=== PATIENT | female | born 1960 | race Caucasian/White ===

== ENCOUNTER → 2016-12-11 | Outpatient (CLI) | payer OTHER ==
--- NOTE | 2016-12-11 16:26 | RAD ---
DATE: 12/11/16 EXAM: DIGITAL SCREEN BILAT W/CAD HISTORY: Routine screening COMPARISON: 12/11/15 This study was interpreted with the benefit of Computerized Aided Detection (CAD). TECHNIQUE: Routine digital CC and MLO views of both breasts are obtained. FINDINGS: Breast Density: HETERO The breast parenchyma is heterogeneiously dense, which could reduce sensitivity of mammography. Breast parenchyma level C.. No suspicious clustered microcalcifications or architectural distortion seen. Stable nodules are seen in both breasts. The skin and nipples are intact. IMPRESSION: Benign findings BI-RADS CATEGORY: 2 BENIGN FINDING(S) RECOMMENDED FOLLOW-UP: 12M 12 MONTH FOLLOW-UP PQRS compliance statement: Patient information was entered into a reminder system with a target due date for the next mammogram. Mammography is a sensitive method for finding small breast cancers, but it does not detect them all and is not a substitute for careful clinical examination. A negative mammogram does not negate a clinically suspicious finding and should not result in delay in biopsying a clinically suspicious abnormality. "Our facility is accredited by the [employer] Mammography Program."
== END | disposition home or self-care (01) ==
LOC: MAMMO 15:21
PROVIDERS: ATTEND Internal Medicine
DX: Z12.31 Encounter for screening mammogram for malignant neoplasm of breast (principal)
CPT/HCPCS: G0202; 77067

== ENCOUNTER → 2017-12-18 | Outpatient (CLI) | payer OTHER ==
--- NOTE | 2017-12-18 14:35 | RAD ---
DATE: 12/18/2017 EXAM: DIGITAL SCREEN BILAT W/CAD HISTORY: Previous right breast cancer COMPARISON: 12/18/2017 This study was interpreted with the benefit of Computerized Aided Detection (CAD). Breast Density: HETERO The breast parenchyma is heterogenously dense, which could reduce sensitivity of mammography. Breast parenchyma level C. FINDINGS: No new or enlarging breast densities are seen. There is an unchanged small smooth nodule in the anterolateral aspect of the left breast. No suspicious microcalcifications have developed. IMPRESSION: Stable mammograms without evidence of malignancy. Stable mammograms without evidence of malignancy. BI-RADS CATEGORY: 2 BENIGN FINDING(S) RECOMMENDED FOLLOW-UP: 12M 12 MONTH FOLLOW-UP PQRS compliance statement: Patient information was entered into a reminder system with a target due date for the next mammogram. Mammography is a sensitive method for finding small breast cancers, but it does not detect them all and is not a substitute for careful clinical examination. A negative mammogram does not negate a clinically suspicious finding and should not result in delay in biopsying a clinically suspicious abnormality. "Our facility is accredited by the [employer] Mammography Program."
== END | disposition home or self-care (01) ==
LOC: MAMMO 13:45
PROVIDERS: ATTEND Internal Medicine
DX: Z12.31 Encounter for screening mammogram for malignant neoplasm of breast (principal); Z85.3 Personal history of malignant neoplasm of breast
CPT/HCPCS: 77067

== ENCOUNTER → 2018-06-08 | Outpatient (CLI) | payer OTHER ==
[~2018-06-08] MED LIST: CHOL10003 PO; GABA600T7 PO; HYDR-2765 PO; LACT1CAP6 PO; LANS30CA PO; LEVO88TA4 PO; LISI10TA2 PO; LYSI500T PO; MILK140C PO; OMEG1CAP38 PO; SIMV20TA3 PO; TURM538C PO; VENL75TA PO; VITA100C8 PO; VITA1TAB19 PO
[2018-06-08 16:04] LABS: BASO # 0.1 x10^3/uL (0.0-0.2); BASO % 1 % (0-3); EOS # 0.3 x10^3/uL (0.0-0.7); EOS % 2 % (0-3); HEMATOCRIT 43.3 % (36.0-47.0); HEMOGLOBIN 14.6 g/dL (12.0-15.5); LYMPH % 26 % (24-48); MEAN CORPUSCULAR HEMOGLOBIN 32 pg (25-35); MEAN CORPUSCULAR HGB CONC 34 g/dL (31-37); MEAN CORPUSCULAR VOLUME 96 fL (79-100); MONO # 0.9 x10^3/uL (0.0-1.1); MONO % 8 % (0-9); NEUT # 7.4 x10^3uL (1.8-7.7); NEUT % 63 % (31-73); PLATELET COUNT 278 x10^3/uL (140-400); RED BLOOD COUNT 4.52 x10^6/uL (3.50-5.40); RED CELL DISTRIBUTION WIDTH 12.2 % (11.5-14.5); WHITE BLOOD COUNT 11.7 x10^3/uL (4.0-11.0)
--- NOTE | 2018-06-08 16:14 | EKG ---
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
[2018-06-08 16:19] LABS: ALBUMIN 4.3 g/dL (3.4-5.0); ALBUMIN/GLOBULIN RATIO 1.1 (1.0-1.7); CALCIUM 9.5 mg/dL (8.5-10.1); CREATININE 0.7 mg/dL (0.6-1.0); GFR 85.6; TOTAL BILIRUBIN 0.3 mg/dL (0.2-1.0); TOTAL PROTEIN 8.1 g/dL (6.4-8.2)
== END | disposition home or self-care (01) ==
LOC: SURGPAT 13:24
PROVIDERS: ATTEND Neurological Surgery
DX: Z01.818 Encounter for other preprocedural examination (principal); M54.12 Radiculopathy, cervical region; M48.02 Spinal stenosis, cervical region
CPT/HCPCS: 36415; 80053; 85025; 87641; 93005

== ENCOUNTER 2018-06-18 06:49 | Observation (INO) | payer OTHER ==
--- NOTE | 2018-06-17 15:06 | HP ---
ADMIT DATE: 06/18/2018 HISTORY OF PRESENT ILLNESS: The patient is a pleasant 58-year-old who is having some difficulty with neck pain and left greater than right arm pain. She notes numbness and tingling sensation in her right arm and she has no difficulties of unsteadiness. The problem started in 09/2016. The problem began spontaneously. She says the tingling in her arm is constant. At night, she has more pain than during the day. She uses ice and massage to help her. She takes Advil. She was doing chiropractic treatment and says this is no longer helping her. She has had 2 epidural steroid injections, which have not given her long-term relief. PAST MEDICAL HISTORY: Arthritis, cold sores, thyroid disease, tonsillitis, hypertension, headaches and migraines. PAST SURGICAL HISTORY: Tonsillectomy in 1976 and breast surgery in 2009. FAMILY HISTORY: Cancer. 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 . Rarely exercises. Smokes lightly. Drinks 4 alcoholic beverages per day. Drinks coffee daily. ALLERGIES: AMPICILLIN. CURRENT MEDICATIONS: Levothyroxine, venlafaxine,vitamin B12, lysine, milk thistle, vitamin E, fiber, lisinopril, simvastatin, gabapentin, Advil. REVIEW OF SYSTEMS: A 12-point review of systems was obtained and is noncontributory except for that mentioned above. PHYSICAL EXAMINATION: NEUROSURGERY EXAMINATION: GENERAL APPEARANCE: Alert, pleasant, no acute distress. HEAD: Normocephalic and atraumatic. NECK AND THYROID: Fnie-ae-hfxiudib tenderness with palpation of posterior cervical region. SKIN: Warm and dry. MUSCULOSKELETAL: Cervical paraspinal muscle bulk is normal, cervical range of motion is restricted, normal range of motion of the upper extremities bilaterally. EXTREMITIES: No clubbing, cyanosis or edema. NEUROLOGIC: Alert and oriented x 3, normal recent and remote memory, strength 5/5 in bilateral upper and lower extremities, sensory was intact to light touch in the upper and lower extremities, reflexes were 3+ and symmetric in the upper and lower extremities bilaterally, there are no pathologic reflexes, normal gait. IMAGING: I reviewed a cervical MRI scan from 05/13/2018. On that study, there is reversal of normal cervical lordosis centered at C3-C4. At C3-C4, there is relatively severe bilateral foraminal stenosis. There is also stenosis with the canal measuring about 7 mm. At C4-C5, there is moderately severe left foraminal narrowing. She also has left-sided foraminal narrowing at C6-C7. ASSESSMENT/ PLAN: C3-C4, C4-C5 and C6-C7, all could be contributing to her neck and bilateral shoulder and arm pain, worse in the left. At this point, I think it is prudent to operate C3-C4 and C4-C5, which would include an anterior cervical diskectomy and fusion. It maybe in the future that she will require further surgery at C6-C7. I did discuss all this with her. I outlined the cervical surgery and the risks involved as well as the expected postoperative course. She understands. At this point, she would like to go ahead. We will make the arrangements. ALDA VALENTIN MD DR: CORTNEY/mazin JOB#: [id number] / [id number] DUY
[2018-06-18] VITALS (9 sets, daily range): BP systolic 102–116; BP diastolic 73–83
[~2018-06-18 06:49] MED LIST changes: +BACITRACIN 50,000 UNIT in IV NORMAL SALINE 1000ML BAG 1,000 ML IRR ONE; -HYDR-2765 PO; +VANCOMYCIN 1GM IVPB FOR OMNI 250 ML IV PRN
[2018-06-18] MEDS ORDERED: ONDANSETRON PF 4 MG/2 ML VIAL. IV PRN (07:00)
[2018-06-18] MEDS ORDERED: LIDOCAINE 1% PF 2 ML VIAL. ID PRN (07:00)
[2018-06-18] MEDS ORDERED: fentaNYL PF VIAL 100 MCG/2 ML VIAL IV PRN ×3 (07:00→12:15)
[2018-06-18] MEDS ORDERED: HYDROmorphone 2 MG/ML VIAL IV PRN (07:00)
[2018-06-18] MEDS ORDERED: IV RINGERS,LACTATED 1000ML 1,000 ML IV SCH (07:00)
[2018-06-18] MEDS ORDERED: GELATIN SPONGE SIZE 100. ONE (07:05)
[2018-06-18] MEDS ORDERED: BUPIVAC MPF-EPI 0.5%-1:200000 30 ML VIAL. ONE (07:05)
[2018-06-18] MEDS ORDERED: THROMBIN TOPICAL 20,000 UNIT SPRAY.SYRN KIT TP ONE (07:06)
[2018-06-18] MEDS ORDERED: ROCURONIUM 50 MG/5 ML VIAL. ONE (08:12)
[2018-06-18] MEDS ORDERED: REMIFENTANIL 1 MG VIAL. IV ONE ×2 (08:12→08:17)
[2018-06-18] MEDS ORDERED: MIDAZOLAM HCL/PF 2 MG/2 ML VIAL. ONE (08:12)
[2018-06-18] MEDS ORDERED: GLYCOPYRROLATE 1 MG/5 ML VIAL. ONE (08:12)
[2018-06-18] MEDS ORDERED: PROPOFOL 20 ML IV ONE (08:13)
[2018-06-18] MEDS ORDERED: PROPOFOL 50 ML IV ONE ×2 (08:13→09:58)
[2018-06-18] MEDS ORDERED: DEXAMETHASONE SOD PHOS 20 MG/5 ML VIAL. ONE (08:13)
[2018-06-18] MEDS ORDERED: DESFLURANE > 120 MINUTES IH ONE (08:13)
[2018-06-18] MEDS ORDERED: LIDOCAINE 2% PF 5 ML VIAL. ONE (08:13)
[2018-06-18] MEDS ORDERED: ONDANSETRON PF 4 MG/2 ML VIAL. ONE (08:13)
[2018-06-18] MEDS ORDERED: PHENYLEPHRINE 10 MG/ML VIAL. ONE (08:15)
[2018-06-18] MEDS: fentaNYL PF VIAL 100 MCG/2 ML VIAL IV PRN ×2 (11:56→12:11)
[2018-06-18] MEDS ORDERED: 0.9 % SODIUM CHLORIDE 10 ML DISP.SYRIN. IV PRN (12:00)
[2018-06-18] MEDS ORDERED: NALOXONE 0.4 MG/ML VIAL. IV PRN (12:00)
[2018-06-18] MEDS ORDERED: CALCIUM CARBONATE 500 MG TAB.CHEW PO PRN (12:00)
[2018-06-18] MEDS ORDERED: ceFAZolin SODIUM 1 GM in IV DEXTROSE 5% 50 ML IV SCH (12:00)
[2018-06-18] MEDS ORDERED: oxyCODONE/APAP 5/325 1 TAB TABLET PO PRN ×2 (12:00)
[2018-06-18] MEDS ORDERED: diphenhydrAMINE HCL 25 MG CAPSULE PO PRN (12:00)
[2018-06-18] MEDS ORDERED: ACETAMINOPHEN 325 MG TABLET. PO PRN (12:00)
[2018-06-18] MEDS ORDERED: diphenhydrAMINE 50 MG/ML VIAL IV PRN (12:00)
[2018-06-18] MEDS ORDERED: MAG HYDROX/ALUMINUM HYD/SIMETH 30 ML ORAL.SUSP PO PRN (12:00)
--- NOTE | 2018-06-18 12:14 | OP ---
DATE OF SURGERY: 06/18/2018 PREOPERATIVE DIAGNOSES: Cervical stenosis and left cervical radiculopathy, C3-C4 and C4-C5. POSTOPERATIVE DIAGNOSES: Cervical stenosis and left cervical radiculopathy, C3-C4 and C4-C5. OPERATION PERFORMED: Anterior cervical microdiscectomy, C3-C4; anterior cervical microdiscectomy, C4-C5; anterior cervical interbody fusion, C3-C4 and C4-C5 and anterior cervical plate, C3, C4 and C5. The operation was done with EMG monitoring, fluoroscopy, microscopic dissection and SSEP monitoring. SURGEON: Yaya Valentin M.D. SANITATION TRUCK CLEANER: NING Shirley, assisted with the surgery. She assisted with the exposure of the 2-level anterior cervical discectomy and fusion as well as the closure. OPERATIVE INDICATIONS: The patient is a pleasant 58-year-old woman who developed intractable neck and left arm pain, which failed conservative measures. On imaging studies, she had the above-mentioned findings. She also had some disease at C5-C6, but I felt that the problems at C3-C4 and C4-C5 were the most severe and I recommended an anterior cervical discectomy and fusion at these levels. I discussed the surgery, the risks, technique and the expected postoperative course and I outlined the soft tissue structures in the neck and the sequelae of injury to each. I explained the expected postoperative course. She understood and she wished to go ahead. DESCRIPTION OF PROCEDURE: Following general endotracheal anesthesia, the patient was positioned supine on the operating room table. The anterior cervical region was then prepped and draped in the standard fashion. CHELSEA hose and AV impulse boots were applied for DVT prophylaxis. A microscope was draped. Fluoroscopy was draped and brought in the field. Monitoring was established. Vancomycin 1 gram was given preoperatively. Using fluoroscopic guidance, an incision was made from the midline around to the right side in a skin crease over the C4-C5 interspace. I dissected down to the skin and subcutaneous tissue and I reflected the trachea and esophagus medially and I assured myself that the carotid artery and the neurovascular bundle were lateral. I gently placed an anterior cervical retractor after I exposed the anterior spine. I had lodged in the longus colli muscle and I brought in the microscope. I placed 14 mm pins in C4 and C5 and I confirmed my position fluoroscopically. I incised the anterior annulus with #11 blade. I then distracted the disc space. I performed discectomy with pituitary rongeurs. There was considerable bone spurring and I drilled this with a high-speed air drill. I then trimmed the annulus and ligament and opened the neural foramina bilaterally and assured myself the roots were quite free. I did obtain perfect hemostasis. I scraped the cartilaginous endplate. I placed a 7 mm interbody fusion cage, which was packed with allograft and autograft bone. The autograft bone I obtained from saving the bone from the microdecompression. I moved the retractors superiorly to C3-C4 and I removed the pin from C5 and placed bone wax in this opening and moved the pin to C3. I distracted the disc space at this level. I repositioned the cervical retractor. I incised the anterior annulus. I performed discectomy with pituitary rongeurs, again all through the microscope using microscopic technique. I performed a generous discectomy. I scraped the cartilaginous endplate. I drilled the posterior spurring. I then used the 1 and 2 mm micro Kerrison's to remove the annulus and the ligament. I also used the arachnoid knife to help with that exposure. After fully decompressing bilaterally, I assured myself that the neural foramen were open. I measured and placed an interbody fusion cage of 7 mm packed with allograft and autograft bone. I irrigated copiously and then I placed a 30 mm Amendia Piranha anterior plate and placed the superior and inferior screws of 14 mm first, followed by the remaining screws, which were all then locked. I removed the retractor. I assured myself of perfect hemostasis and did Valsalva the patient and then I closed the wound with a large absorbable suture including a layer for the platysma. The skin was closed with 4-0 subcuticular stitch. The operation went very well and the patient was taken to recovery in excellent condition. I was quite pleased with the surgery. YAYA VALENTIN MD DR: CORTNEY/mazin JOB#: [id number] / [id number] DUY
[2018-06-18] MEDS ORDERED: HYDROcodone/APAP 7.5/325MG 1 TAB TABLET PO PRN (12:15)
[2018-06-18] MEDS: PROCHLORPERAZINE 10 MG/2 ML VIAL. IV PRN ×2 (12:42→12:53)
[2018-06-18] MEDS: MORPHINE SULFATE 2 MG/ML VIAL. IV PRN ×4 (12:42→13:26)
[2018-06-18] MEDS: POTASSIUM CL 20MEQ D5-0.45NACL 1,000 ML IV SCH (14:04)
--- NOTE | 2018-06-18 14:22 | NUR ---
received from recovery. she is awake and able to answer questions. at bedside. she is rating her pain at "3" at this time. she has decrease sensation in left arm that comes and go; but is ok at this time. 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
[2018-06-18] MEDS: VENLAFAXINE 75 MG TABLET. PO SCH (21:00)
[2018-06-18] MEDS ORDERED: SIMVASTATIN 20 MG TABLET PO SCH (21:00)
[2018-06-18] MEDS ORDERED: VANCOMYCIN 1 GM in IV NORMAL SALINE 250ML 250 ML IV ONE (21:00)
[2018-06-18] MEDS: HYDROcodone/APAP 7.5/325MG 1 TAB TABLET PO PRN (21:00)
[2018-06-18] MEDS: GABAPENTIN 300 MG CAPSULE. PO SCH (21:00)
[2018-06-19] MEDS: HYDROcodone/APAP 7.5/325MG 1 TAB TABLET PO PRN ×3 (01:34→11:06)
[2018-06-19] MEDS: POTASSIUM CL 20MEQ D5-0.45NACL 1,000 ML IV SCH ×2 (02:20→11:02)
[2018-06-19 06:33] VITALS: BP 118/81
[2018-06-19] MEDS ORDERED: LEVOTHYROXINE 88 MCG TABLET PO SCH (07:30)
[2018-06-19] MEDS ORDERED: PANTOPRAZOLE 40 MG TABLET.DR. PO SCH (07:30)
[2018-06-19] MEDS ORDERED: LACTOBACILLUS RHAMNOSUS GG 1 CAPSULE. PO SCH (09:00)
[2018-06-19] MEDS ORDERED: LYSINE 500 MG PO SCH (09:00)
[2018-06-19] MEDS ORDERED: LISINOPRIL 10 MG TABLET PO SCH (09:00)
[2018-06-19] MEDS ORDERED: MILK THISTLE SEED EXTRACT PO SCH (09:00)
[2018-06-19] MEDS ORDERED: OMEGA-3 FATTY ACIDS/FISH OIL 1,000 MG CAPSULE. PO SCH (09:00)
[2018-06-19] MEDS ORDERED: CHOLECALCIFEROL (VITAMIN D3) 1,000 UNIT TABLET PO SCH (09:00)
[2018-06-19] MEDS ORDERED: TURMERIC ROOT EXTRACT 538 MG PO SCH (09:00)
[2018-06-19] MEDS ORDERED: VITAMIN E 200 UNIT CAPSULE. PO SCH (09:00)
[2018-06-19] MEDS ORDERED: VITAMIN B COMPLEX TABLET. PO SCH (09:00)
[2018-06-19 09:12] VITALS: BP 129/72
[2018-06-19] MEDS: VENLAFAXINE 75 MG TABLET. PO SCH (09:12)
[2018-06-19] MEDS: GABAPENTIN 300 MG CAPSULE. PO SCH (09:12)
[2018-06-19] MEDS ORDERED: HYDR-2765 PO (09:42)
[2018-06-19] MEDS ORDERED: METHOCARBAMOL 750 MG TABLET PO PRN (10:15)
--- NOTE | 2018-06-19 10:19 | PDOC ---
PROGRESS NOTES Subjective Subjective 1 day PO ACDF Objective Objective Patient sitting up on edge of bed after walking with PT. Doing well. Pain well controlled. Vital Signs Date Time Temp Pulse Resp B/P (MAP) Pulse Ox O2 Delivery O2 Flow Rate FiO2 06/19/18 09:12 59 20 129/72 (91) Room Air 06/19/18 06:33 98.1 96 98.1 06/18/18 20:00 10.0 Intake and Output 06/19/18 07:00 Intake Total 2700 ml Output Total 625 ml Balance 2075 ml Intake Oral 600 ml IV Total 2100 ml Output Urine Total 600 ml Estimated Blood Loss 25 ml Physical Exam Physical Exam Incision flat. Dressing Intact. Plan Plan of Care Patient to d/c home today. Will f/u in the office in 2 weeks. Discussed restrictions and post op course. She can call with any questions/concerns. Comment Review of Relevant I have reviewed the following items kurt (where applicable) has been applied. Medications Current Medications Bacitracin 15428 unit/Sodium Chloride 1,000 ml @ 1,000 mls/hr 1X ONCE IRR Last administered on 06/18/18at 09:47; Start 06/18/18 at 06:00; Stop 06/18/18 at 06: 59; Status DC Ondansetron HCl (Zofran) 4 mg PRN Q6HRS PRN IV NAUSEA/VOMITING; Start 06/18/18 at 07:00; Stop 06/18/18 at 13:47; Status DC Fentanyl Citrate (Fentanyl 2ml Vial) 25 mcg PRN Q5MIN PRN IV MILD PAIN; Start 06/18/18 at 07:00; Stop 06/18/18 at 13:47; Status DC Fentanyl Citrate (Fentanyl 2ml Vial) 50 mcg PRN Q5MIN PRN IV MODERATE TO SEVERE PAIN Last administered on 06/18/18at 12:11; Start 06/18/18 at 07:00; Stop at 13:47; Status DC Morphine Sulfate (Morphine Sulfate) 1 mg PRN Q10MIN PRN IV SEVERE PAIN Last administered on 06/18/18at 13:26; Start 06/18/18 at 07:00; Stop 06/18/18 at 13:47; Status DC Ringer's Solution 1,000 ml @ 30 mls/hr Q24H IV Last administered on 06/18/18at 07:16; Start 06/18/18 at 07:00; Stop 06/18/18 at 13:47; Status DC Lidocaine HCl (Xylocaine-Mpf 1% 2ml Vial) 2 ml PRN 1X PRN ID PRIOR TO IV START ; Start 06/18/18 at 07:00; Stop 06/18/18 at 13:47; Status DC Hydromorphone HCl (Dilaudid) 0.5 mg PRN Q10MIN PRN IV SEV PAIN, Second choice; Start 06/18/18 at 07:00; Stop 06/18/18 at 13:47; Status DC Prochlorperazine Edisylate (Compazine) 5 mg PACU PRN PRN IV NAUSEA, MRX1 Last administered on 06/18/18at 12:53; Start 06/18/18 at 07:00; Stop 06/18/18 at 13:47; Status DC Vancomycin HCl 250 ml @ 250 mls/hr 1X PREOP PRN IV PRIOR TO PROCEDURE Last administered on 06/18/18at 08:55; Start 06/18/18 at 06:00; Stop 06/18/18 at 18:04; Status DC Gelatin (Gelfoam Size 100) 1 each STK-MED ONCE .ROUTE Last administered on 06/18at 09:47; Start 06/18/18 at 07:05; Stop 06/18/18 at 07:06; Status DC Bupivacaine HCl/ Epinephrine Bitart (Sensorcain-Mpf Epi 0.5%-1:[id number]) 30 ml STK -MED ONCE .ROUTE Last administered on 06/18/18at 09:47; Start 06/18/18 at 07:05; Stop 06/18/18 at 07:06; Status DC Thrombin 20,000 unit STK-MED ONCE TP Last administered on 06/18/18at 09:47; Start 06/18/18 at 07:06; Stop 06/18/18 at 07:07; Status DC Glycopyrrolate (Robinul) 1 mg STK-MED ONCE .ROUTE ; Start 06/18/18 at 08:12; Stop 06/18/18 at 08:13; Status DC Rocuronium Mitchell (Zemuron) 50 mg STK-MED ONCE .ROUTE ; Start 06/18/18 at 08:12 ; Stop 06/18/18 at 08:13; Status DC Midazolam HCl (Versed) 2 mg STK-MED ONCE .ROUTE ; Start 06/18/18 at 08:12; Stop 06/18/18 at 08:13; Status DC Remifentanil HCl (Ultiva) 1 mg STK-MED ONCE IV ; Start 06/18/18 at 08:12; Stop at 08:13; Status DC Desflurane (Suprane) 90 ml STK-MED ONCE IH ; Start 06/18/18 at 08:13; Stop at 08:14; Status DC Propofol 20 ml @ As Directed STK-MED ONCE IV ; Start 06/18/18 at 08:13; Stop 06/18 at 08:14; Status DC Propofol 50 ml @ As Directed STK-MED ONCE IV ; Start 06/18/18 at 08:13; Stop 06/18 at 08:14; Status DC Dexamethasone Sodium Phosphate (Decadron) 20 mg STK-MED ONCE .ROUTE ; Start 06/18 at 08:13; Stop 06/18/18 at 08:14; Status DC Ondansetron HCl (Zofran) 4 mg STK-MED ONCE .ROUTE ; Start 06/18/18 at 08:13; Stop 06/18/18 at 08:14; Status DC Lidocaine HCl (Lidocaine Pf 2% Vial) 5 ml STK-MED ONCE .ROUTE ; Start 06/18/18 at 08:13; Stop 06/18/18 at 08:14; Status DC Phenylephrine HCl (Garret-Synephrine Inj) 10 mg STK-MED ONCE .ROUTE ; Start at 08:15; Stop 06/18/18 at 08:16; Status DC Remifentanil HCl (Ultiva) 1 mg STK-MED ONCE IV ; Start 06/18/18 at 08:17; Stop at 08:18; Status DC Propofol 50 ml @ As Directed STK-MED ONCE IV ; Start 06/18/18 at 09:58; Stop 06/18 at 09:59; Status DC Acetaminophen (Tylenol) 650 mg PRN Q6HRS PRN PO MILD PAIN / TEMP; Start at 12:00 Al Hydroxide/Mg Hydroxide (Mylanta Plus Xs) 30 ml PRN Q3HRS PRN PO HEARTBURN / GAS; Start 06/18/18 at 12:00 Calcium Carbonate/ Glycine (Tums) 500 mg PRN Q3HRS PRN PO INDIGESTION; Start at 12:00 Diphenhydramine HCl (Benadryl) 25 mg PRN Q6HRS PRN PO ITCHING; Start 06/18/18 at 12:00 Diphenhydramine HCl (Benadryl) 25 mg PRN Q6HRS PRN IV ITCHING; Start 06/18/18 at 12:00 Naloxone HCl (Narcan) 0.1 mg PRN Q2MIN PRN IV ADMIN; Start 06/18/18 at 12:00 Sodium Chloride (Normal Saline Flush) 3 ml QSHIFT PRN IV AFTER MEDS AND BLOOD DRAWS; Start 06/18/18 at 12:00 Potassium Chloride/Dextrose/ Sod Cl 1,000 ml @ 75 mls/hr [id number] IV Last administered on 06/18/18at 14:04; Start 06/18/18 at 13:00 Oxycodone/ Acetaminophen (Percocet 5/325) 1 tab PRN Q4HRS PRN PO MILD PAIN, 1ST CHOICE; Start 06/18/18 at 12:00; Stop 06/18/18 at 12:23; Status DC Oxycodone/ Acetaminophen (Percocet 5/325) 2 tab PRN Q4HRS PRN PO MODERATE PAIN , SEVERE PAIN; Start 06/18/18 at 12:00; Stop 06/18/18 at 12:23; Status DC Cefazolin Sodium 1 gm/Dextrose 50 ml @ 100 mls/hr Q8H IV ; Start 06/18/18 at 12: 00; Stop 06/18/18 at 12:07; Status DC Fentanyl Citrate (Fentanyl 2ml Vial) 25 mcg PRN Q2HR PRN IV MILD PAIN; Start at 12:00 Fentanyl Citrate (Fentanyl 2ml Vial) 50 mcg PRN Q2HR PRN IV MODERATE PAIN, SEVERE PAIN Last administered on 06/18/18at 17:04; Start 06/18/18 at 12:15 Vancomycin HCl 1 gm/Sodium Chloride 250 ml @ 250 mls/hr 1X ONCE IV Last administered on 06/18/18at 21:01; Start 06/18/18 at 21:00; Stop 06/18/18 at 21:59; Status DC Acetaminophen/ Hydrocodone Bitart (Lortab 7.5/325) 1 tab PRN Q4HRS PRN PO PAIN MILD Last administered on 06/18/18at 15:45; Start 06/18/18 at 12:15 Acetaminophen/ Hydrocodone Bitart (Lortab 7.5/325) 2 tab PRN Q4HRS PRN PO PAIN MOD TO SEV Last administered on 06/19/18at 06:16; Start 06/18/18 at 12:45 Vitamin D (Vitamin D3) 1,000 unit DAILY PO ; Start 06/19/18 at 09:00 Levothyroxine Sodium (Synthroid) 88 mcg DAILYAC PO Last administered on 06:13; Start 06/19/18 at 07:30 Lisinopril (Prinivil) 10 mg DAILY PO Last administered on 06/19/18 09:12; Start 06/19/18 at 09:00 Vitamin B Complex (Lupillo B) 1 tab DAILY PO ; Start 06/19/18 at 09:00 Gabapentin (Neurontin) 300 mg BID PO Last administered on 06/19/18at 09:12; Start 06/18/18 at 21:00 Lactobacillus Rhamnosus (Culturelle) 1 cap DAILY PO ; Start 06/19/18 at 09:00 Pantoprazole Sodium (Protonix) 40 mg DAILYAC PO Last administered on 06/19/18at 06:13; Start 06/19/18 at 07:30 Non-Formulary Medication (Lysine (L-Lysine)) 500 mg DAILY PO ; Start 06/19/18 at 09:00; Status UNV Non-Formulary Medication (Milk Thistle Seed Extract (Milk Thistle)) 140 mg DAILY PO ; Start 06/19/18 at 09:00; Status UNV Fish Oil (Fish Oil) 1,000 mg DAILY PO ; Start 06/19/18 at 09:00 Simvastatin (Zocor) 20 mg HS PO Last administered on 06/18/18at 21:00; Start 06/18 at 21:00 Non-Formulary Medication (Turmeric Root Extract (Turmeric)) 538 mg DAILY PO ; Start 06/19/18 at 09:00; Status UNV Venlafaxine HCl (Effexor) 75 mg BID PO Last administered on 06/19/18at 09:12; Start 06/18/18 at 21:00 Vitamin E 200 unit DAILY PO ; Start 06/19/18 at 09:00 Methocarbamol (Robaxin) 750 mg TID PRN PRN PO MUSCLE SPASMS; Start 06/19/18 at 10:15 Active Scripts Active Hydrocodone-Apap 7.5-325 (Hydrocodone Bit/Acetaminophen) 1 Tab Tablet 1-2 Tab PO PRN Q6HRS PRN Reported Vitamin E (Vitamin E (Dl,Tocopheryl Acet)) 100 Unit Capsule 100 Unit PO DAILY B Complex (Vitamin B Complex) 1 Each Tablet 1 Each PO DAILY Vitamin D3 (Cholecalciferol (Vitamin D3)) 1,000 Unit Tablet 1,000 Unit PO DAILY L-Lysine (Lysine) 500 Mg Tablet 500 Mg PO DAILY Turmeric (Turmeric Root Extract) 538 Mg Capsule 538 Mg PO DAILY [place] 3 Fish Oil Softgel ([place]-3 Fatty Acids/Fish Oil) 1 Each Capsule.dr 1 Each PO DAILY Probiotic (Lactobacillus Acidophilus) 1 Each Capsule 1 Each PO DAILY Milk Thistle (Milk Thistle Seed Extract) 140 Mg Capsule 140 Mg PO DAILY Lansoprazole 30 Mg Capsule.dr 15 Mg PO DAILY Lisinopril 10 Mg Tablet 10 Mg PO DAILY Gabapentin 600 Mg Tablet 300 Mg PO BID Levothyroxine Sodium 88 Mcg Tablet 88 Mcg PO DAILYAC Venlafaxine Hcl 75 Mg Tablet 75 Mg PO BID Simvastatin 20 Mg Tablet 20 Mg PO DAILY Vitals/I & O Vital Sign - Last 24 Hours 06/18/18 06/18/18 06/18/18 06/18/18 11:50 11:56 12:05 12:11 Temp 97.8 97.8 Pulse 92 81 Resp 16 16 16 16 B/P (MAP) 142/92 134/90 Pulse Ox 97 94 O2 Delivery Simple Mask Room Air O2 Flow Rate 10 06/18/18 06/18/18 06/18/18 06/18/18 12:20 12:35 12:42 12:50 Pulse 78 78 77 Resp 16 20 20 20 B/P (MAP) 129/85 123/83 120/72 Pulse Ox 95 95 99 97 O2 Delivery Room Air Room Air Room Air Room Air 06/18/18 06/18/18 06/18/18 3/7/19 12:54 13:05 13:13 13:15 Temp 97.8 97.8 97.8 97.8 Pulse 74 84 Resp 20 20 20 20 B/P (MAP) 122/79 122/76 Pulse Ox 99 94 99 96 O2 Delivery Room Air Room Air Room Air 06/18/18 06/18/18 06/18/18 06/18/18 13:26 13:30 13:32 13:45 Temp 98.6 98.6 Pulse 74 76 76 Resp 20 16 B/P (MAP) 113/83 (93) 114/80 (91) 114/82 (93) Pulse Ox 95 94 96 97 O2 Delivery Room Air Room Air 06/18/18 06/18/18 06/18/18 06/18/18 13:53 14:00 14:15 14:45 Pulse 70 73 86 B/P (MAP) 115/76 (89) 114/76 (89) 116/75 (89) Pulse Ox 94 94 97 O2 Delivery Room Air 06/18/18 06/18/18 06/18/18 06/18/18 15:15 15:45 18:32 20:00 Temp 97.8 97.8 Pulse 74 84 B/P (MAP) 108/79 (89) 114/73 (87) Pulse Ox 93 O2 Delivery Room Air Room Air O2 Flow Rate 10.0 06/18/18 06/18/18 06/19/18 06/19/18 21:00 22:57 01:34 02:59 Temp 98.5 98.5 Pulse 68 Resp 20 18 18 18 B/P (MAP) 102/73 (83) Pulse Ox 93 95 95 O2 Delivery Room Air Room Air Room Air 06/19/18 06/19/18 06/19/18 06/19/18 06:16 06:33 08:00 09:12 Temp 98.1 98.1 Pulse 75 59 Resp 20 B/P (MAP) 118/81 (93) 128/72 Pulse Ox 95 96 O2 Delivery Room Air Room Air Room Air 06/19/18 09:12 Pulse 59 Resp 20 B/P (MAP) 129/72 (91) O2 Delivery Room Air Intake and Output 06/18/18 06/18/18 06/19/18 15:00 23:00 07:00 Intake Total 1150 ml 950 ml 600 ml Output Total 25 ml 600 ml Balance 1125 ml 350 ml 600 ml ALDA VALENTIN MD Jun 19, 2018 10:19
[2018-06-19] MEDS ORDERED: BENZOCAINE/MENTHOL LOZENGE. PO PRN (10:45)
--- NOTE | 2018-06-19 11:15 | NUR ---
WARREN IS READY TO GO HOME. LEFT HAND AND ARM OR SWOLLEN AND TIGHT. 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 GOOD SENSATION AND PULSES. REVIEWED WRITTEN INSTRUCTIONS REGARDING RESTRICTIONS TO ACTIVITIES OF DAILY LIVING SUCH BATHING DRIVING AND REVIEWED MEDICATIONS AND SIDE EFFECTS. ENCOURAGED NOT TO SMOKE . ORIGINAL SURGICAL DRESSING REMOVED ; CLEANSED WITH CHLOR PREP THEN [place] PLACED. REVIEWED INCISIONAL CARE. AT BEDSIDE. SCRIPT GIVEN FOR PAIN MED AND MUSCLE RELAXANT
[2018-06-19 11:22] VITALS: BP 120/90
--- NOTE | 2018-06-22 11:08 | PATHOLOGY ---
[facility] Accession Number: [id number] . 01 Material submitted: . CERVICAL DISC . 01 Clinical history: . Cervical stenosis, radiculopathy . 02 Diagnosis: Segments of fibrocartilaginous tissue and bone, cervical disc: - Degenerative changes of fibrocartilaginous tissue. . (JPM:mml; 06/22/2018) M/06/22/2018 . 02 Comment: There is no evidence of an acute inflammatory process or malignancy. . (JPM:mml; 06/22/2018) . 02 Electronically signed: . Clay Montes MD, Pathologist NPI- [id number] . 01 Gross description: . Received in formalin labeled "Tigist Bailey, cervical disc," are several pieces of glistening, fibrous tissue measuring 2.1 x 2.2 x 0.3 cm in aggregate dimensions, containing small fragments of possible bone. The specimen is filtered and submitted entirely in cassette A1, following decalcification. (TSD; 06/18/2018) TOB/TOB . 02 Pathologist provided ICD-10: M50.30 . 02 CPT . 740847, [id number] Specimen Comment: A courtesy copy of this report has been sent to Specimen Comment: [phone], . Specimen Comment: Report sent to and Performed at: 01 [facility] [address], [place] [id number] MD Jameson Shell MD Phone: [phone] Performed at: [facility] [address] [place], [place] [id number] MD Clay Montes MD Phone: [phone]
== END 2018-06-19 11:20 | disposition home or self-care (01) ==
LOC: SURG 06:49 → 4 SOUTHEST 11:48
PROVIDERS: ADMIT Neurological Surgery; ATTEND Neurological Surgery
DX: M48.02 Spinal stenosis, cervical region (principal); M54.12 Radiculopathy, cervical region; I10 Essential (primary) hypertension; E07.9 Disorder of thyroid, unspecified; G43.909 Migraine, unspecified, not intractable, without status migrainosus; J03.90 Acute tonsillitis, unspecified; M19.90 Unspecified osteoarthritis, unspecified site; B00.1 Herpesviral vesicular dermatitis; Z98.890 Other specified postprocedural states; Z79.899 Other long term (current) drug therapy
CPT/HCPCS: 20931; 20937; 22551; 22552; 22845; 76000; 88304; 88311; 96365; 96366; 96375; 97162; 97530; 99406; A7015; C1713; G0378; G0379; G8978; G8979; G8980; J0780; J1100; J2001; J2250; J2270; J2405; J2704; J3010; J3370; J3490; J7030; J7050

== ENCOUNTER → 2018-09-15 | Outpatient (CLI) | payer OTHER ==
[~2018-09-15] MED LIST changes: -BACITRACIN 50,000 UNIT in IV NORMAL SALINE 1000ML BAG 1,000 ML IRR ONE; +HYDR-2765 PO; -VANCOMYCIN 1GM IVPB FOR OMNI 250 ML IV PRN
--- NOTE | 2018-09-15 14:02 | RAD ---
2 views of the cervical spine without comparison for status post fusion. FINDINGS: There is straightening of normal cervical lordosis. No alignment abnormality. ACDF has been performed from C3 through C5. Disc spaces are well-maintained save for some narrowing at C6-7. Prevertebral soft tissues are grossly unremarkable. IMPRESSION: 1. Postsurgical changes of the cervical spine as described. Electronically signed by: Shaun Chicas MD (09/15/2018 1:58 PM) [id number]
== END | disposition home or self-care (01) ==
LOC: RAD 11:36
PROVIDERS: ATTEND Neurological Surgery
DX: M48.02 Spinal stenosis, cervical region (principal); M43.22 Fusion of spine, cervical region
CPT/HCPCS: 72040

== ENCOUNTER → 2019-01-04 | Outpatient (CLI) | payer OTHER ==
[~2019-01-04] MED LIST changes: -LYSI500T PO; +LYSI500T8 PO
--- NOTE | 2019-01-04 15:29 | RAD ---
DATE: 01/04/2019 EXAM: DIGITAL SCREEN BILAT W/CAD HISTORY: Malignant right breast biopsy in 2009 COMPARISON: 11/24/2014, 12/11/2015, 12/11/2016, 12/18/2017 mammographic exams This study was interpreted with the benefit of Computerized Aided Detection (CAD). Breast Density: HETERO The breast parenchyma is heterogenously dense, which could reduce sensitivity of mammography. Breast parenchyma level C. FINDINGS: No suspicious calcifications, masses, or distortion. IMPRESSION: Stable BI-RADS CATEGORY: 1 NEGATIVE RECOMMENDED FOLLOW-UP: 12M 12 MONTH FOLLOW-UP PQRS compliance statement: Patient information was entered into a reminder system with a target due date in one year for the next mammogram. Mammography is a sensitive method for finding small breast cancers, but it does not detect them all and is not a substitute for careful clinical examination. A negative mammogram does not negate a clinically suspicious finding and should not result in delay in biopsying a clinically suspicious abnormality. "Our facility is accredited by the [employer] Mammography [employer]."
== END | disposition home or self-care (01) ==
LOC: MAMMO 15:00
PROVIDERS: ATTEND Obstetrics & Gynecology
DX: Z12.31 Encounter for screening mammogram for malignant neoplasm of breast (principal)
CPT/HCPCS: 77067

== ENCOUNTER → 2020-01-06 | Outpatient (CLI) | payer OTHER ==
[~2020-01-06] MED LIST changes: +SIMV20TA18 PO; -SIMV20TA3 PO
--- NOTE | 2020-01-07 16:45 | RAD ---
BILATERAL SCREENING MAMMOGRAM, 3-D History: Routine screening. Comparison: 11/24/2014, 12/11/2015, 12/11/2016, 12/18/2017, 01/04/2019. Technique: MLO and CC digital tomosynthesis (3D) images obtained. Radiologist reviewed these images on dedicated workstation. Findings: Breast Tissue Density C : The breasts are heterogeneously dense, which may obscure small masses. There are no dominant masses, suspicious microcalcifications, or architectural distortion. IMPRESSION: No mammographic evidence of malignancy. Recommend routine screening. BI-RADS category 1: Negative. The images were reviewed with computer-aided detection. Patient information is entered into reminder system with a target due date for the next screening mammogram. Mammography is the most sensitive method for finding small breast cancers, but it does not detect them all and is not a substitute for careful clinical examination. A negative mammogram does not negate a clinically suspicious finding and should not result in delay in biopsying a clinically suspicious abnormality. "Our facility is accredited by the [employer] Mammography [employer]." Electronically signed by: Luke Huizar MD (01/07/2020 4:42 PM) [id number]
== END | disposition home or self-care (01) ==
LOC: MAMMO 13:54
PROVIDERS: ATTEND Obstetrics & Gynecology
DX: Z12.31 Encounter for screening mammogram for malignant neoplasm of breast (principal)
CPT/HCPCS: 77063; 77067

== ENCOUNTER → 2021-01-11 | Outpatient (CLI) | payer OTHER ==
[~2021-01-11] MED LIST changes: +LISI10TA16 PO; -LISI10TA2 PO; +VITA100C10 PO; -VITA100C8 PO
--- NOTE | 2021-01-11 15:22 | RAD ---
EXAMINATION: US BREAST LT, MG DIGITAL BILAT DIAGNOSTIC MAMMO WITH CHRISTOPHER History: Left breast lump. History of right breast cancer Comparison: Multiple prior exams dating back to 12/11/2015 Technique: Bilateral digital diagnostic mammogram views were obtained. CAD was utilized. 3-D tomosyn thesis images were acquired. Left breast ultrasound was performed in the area of concern. Findings: Breast Tissue Density B : There are scattered areas of fibroglandular density. There is a 6 mm circumscribed mass around 4:00 1.5 cm from the nipple in the left breast. This is str ictly deep to the palpable marker. No other suspicious masses, calcifications, or architectural disto rtion in either breast. ULTRASOUND: There is an anechoic ovoid circumscribed cyst with posterior acoustic enhancement at 5:00 2 cm from the nipple corresponding with the palpable abnormality. No suspicious mass. No axillary ly mphadenopathy. IMPRESSION: 6 mm simple cyst in the left breast corresponding with the palpable abnormality. No evidence of malig alvaro. Recommend routine annual screening. BI-RADS category 2: Benign findings. The images were reviewed with computer aided detection. Patient information is entered into the reminder system with a target due date for the next screening mammogram. Mammography is the most sensitive method for finding small breast cancers, but it does not detect the m all and is not a substitute for careful clinical examination. A negative mammogram does not negate a clinically suspicious finding and should not result in delay in biopsying a clinically suspicious a bnormality. "Our facility is accredited by the [employer] Mammography [employer]." Electronically signed by: Tatyana Sherman MD (01/11/2021 3:19 PM) [email or web address]
== END ==
LOC: MAMMO 12:40
PROVIDERS: ATTEND Internal Medicine Hematology & Oncology
DX: N63.23 Unspecified lump in the left breast, lower outer quadrant (principal); N60.02 Solitary cyst of left breast
CPT/HCPCS: 76641; 77066; G0279; 77062